=== PATIENT | male | born 1990 | race Caucasian/White ===

== ENCOUNTER 2017-02-16 09:10 | Inpatient (IN) | payer OTHER ==
[~2017-02-16] VITALS: Ht 205.7 cm; Wt 106.3 kg
[2017-02-16 09:22] VITALS: BP 133/76
[2017-02-16 09:31] VITALS: BP 153/64
[2017-02-16 10:05] LABS: BASO # 0.1 10*3/uL (0.0-0.1); BASO % 0.5 % (0.0-1.0); EOS # 0.3 10*3/uL (0.0-0.4); EOS % 2.7 % (1.0-4.0); HEMATOCRIT 45.3 % (42.0-52.0); LYMPH # 1.4 10*3/uL (1.3-4.4); LYMPH % 15.5 % (27.0-41.0); MEAN CELL VOLUME 92.1 fl (80.0-94.0); MEAN CORPUSCULAR HGB 30.5 pg (27.0-31.0); MEAN CORPUSCULAR HGB CONC 33.1 g/dl (33.0-37.0); MEAN PLATELET VOLUME 12.8 fl (9.6-12.3); MONO # 0.5 10*3/uL (0.1-1.0); MONO % 5.2 % (3.0-9.0); NEUT % 75.9 % (47.0-73.0); PLATELET COUNT AUTOMATED 180 10*3/uL (130-400); RED BLOOD COUNT 4.92 10*6/uL (4.50-5.90); RED CELL DISTRI WIDTH 12.4 % (0-14.5); WHITE BLOOD COUNT 9.3 10*3/uL (4.8-10.8)
[2017-02-16 10:07] LABS: BILIRUBIN NEGATIVE (NEGATIVE); BLOOD NEGATIVE (NEGATIVE); CLARITY CLEAR (CLEAR); COLOR YELLOW (YELLOW); GLUCOSE NEGATIVE (NEGATIVE); KETONE NEGATIVE (NEGATIVE); LEUKO ESTERASE NEGATIVE (NEGATIVE); NITRITE NEGATIVE (NEGATIVE); PROTEIN NEGATIVE (NEGATIVE); UROBILINOGEN 0.2 E.U./dl (0.2-1.0)
[2017-02-16 10:14] LABS: URINE AMPHETAMINES < 1000 (1000ng/ml); URINE BARBITURATES < 200 (200ng/ml); URINE COCAINE < 300 (300ng/ml)
[2017-02-16 10:16] LABS: EPITHELIAL CELLS 0-2; RBC 0-2 rbc/hpf (0-2); URINE REFLEX COMMENT NO (NO)
[2017-02-16 10:22] LABS: ALBUMIN 3.9 gm/dl (3.1-4.5); ALKALINE PHOSPHATASE 66 U/L (45-117); BILIRUBIN, TOTAL 0.7 mg/dl (0.2-1.0); BUN 17 mg/dl (7-24); CARBON DIOXIDE 31 mmol/L (21-32); CHLORIDE 101 mmol/L (98-107); EST GLOM FILT AFRICAN AMERICAN > 60 ml/min; GLUCOSE 100 mg/dL (65-99); POTASSIUM 4.7 mmol/L (3.5-5.1); SGOT/AST 25 IU/L (3-35); SGPT/ALT 48 U/L (12-78); SODIUM 138 mmol/L (136-145); TOTAL PROTEIN 8.1 gm/dL (6.4-8.2)
[2017-02-16 12:00] VITALS: BP 122/55
[2017-02-16 13:29] LABS: PROTHROMBIN TIME 10.4 SECONDS (9.0-12.4)
[2017-02-16 16:00] VITALS: BP 149/75
[2017-02-16 20:00] VITALS: BP 131/64
[2017-02-17] VITALS: BP 110/50
[2017-02-17 04:00] VITALS: BP 116/89
[2017-02-17 08:00] VITALS: BP 120/58
[2017-02-17 11:59] VITALS: BP 110/87
[2017-02-17 16:00] VITALS: BP 139/88
[2017-02-17] MEDS ORDERED: ZOFRAN 4 MG ED2 TAB PO (16:34)
[2017-02-17] MEDS ORDERED: ATARAX,VISTARIL50 MG PO (16:34)
[2017-02-17] MEDS ORDERED: CARBIDOPA/LEVOD1 TA1 PO (16:34)
== END 2017-02-17 18:00 | disposition home or self-care (01) | DRG 897 ==
LOC: ED 09:10 → 4E 10:28 → EDHOLD 10:28 → 4E 10:40
PROVIDERS: Internal Medicine Hospice and Palliative Medicine; Registered Nurse
DX: F11.23 Opioid dependence with withdrawal (principal); F41.9 Anxiety disorder, unspecified; M79.1 Myalgia; G25.81 Restless legs syndrome; F12.10 Cannabis abuse, uncomplicated; J30.2 Other seasonal allergic rhinitis; F17.210 Nicotine dependence, cigarettes, uncomplicated; Z88.8 Allergy status to other drugs, medicaments and biological substances

== ENCOUNTER 2020-04-30 11:14 | Inpatient (IN) | payer OTHER ==
[~2020-04-30] VITALS: Ht 205.7 cm; Wt 114.4 kg
[~2020-04-30 11:14] MED LIST: ATARAX,VISTARIL50 MG PO; CARBIDOPA/LEVOD1 TA1 PO; ZOFRAN 4 MG ED2 TAB PO
[2020-04-30 11:20] VITALS: BP 111/66
[2020-04-30 12:07] LABS: BASO # 0.1 10*3/uL (0.0-0.1); BASO % 0.8 % (0.0-1.0); EOS # 0.2 10*3/uL (0.0-0.4); EOS % 2.1 % (1.0-4.0); HEMATOCRIT 45.9 % (42.0-52.0); LYMPH # 1.5 10*3/uL (1.3-4.4); LYMPH % 21.4 % (27.0-41.0); MEAN CELL VOLUME 94.1 fl (80.0-94.0); MEAN CORPUSCULAR HGB 30.5 pg (27.0-31.0); MEAN CORPUSCULAR HGB CONC 32.5 g/dl (33.0-37.0); MEAN PLATELET VOLUME 12.1 fl (9.6-12.3); MONO # 0.5 10*3/uL (0.1-1.0); MONO % 6.3 % (3.0-9.0); NEUT # 4.9 10*3/uL (2.3-7.9); NEUT % 69.1 % (47.0-73.0); PLATELET COUNT AUTOMATED 197 10*3/uL (130-400); RED BLOOD COUNT 4.88 10*6/uL (4.50-5.90); RED CELL DISTRI WIDTH 12.9 % (0-14.5); WHITE BLOOD COUNT 7.1 10*3/uL (4.8-10.8)
[2020-04-30 12:12] LABS: ACT PARTIAL THROMBO TIME 29.6 SECONDS (20.0-32.1)
[2020-04-30 12:17] LABS: ALBUMIN 3.7 gm/dl (3.1-4.5); ALKALINE PHOSPHATASE 47 U/L (45-117); BUN 15 mg/dl (7-24); CHLORIDE 104 mmol/L (98-107); CREATININE 0.87 mg/dL (0.70-1.30); POTASSIUM 4.7 mmol/L (3.5-5.1); SGOT/AST 37 IU/L (3-35); SGPT/ALT 70 U/L (12-78); SODIUM 137 mmol/L (136-145); TOTAL PROTEIN 7.9 gm/dL (6.4-8.2)
[2020-04-30 12:19] LABS: ETHYL ALCOHOL < 3.0 mg/dl (<3)
[2020-04-30 12:21] LABS: BILIRUBIN NEGATIVE (NEGATIVE); CLARITY SL CLOUDY (CLEAR); COLOR YELLOW (YELLOW); GLUCOSE NEGATIVE (NEGATIVE); KETONE NEGATIVE (NEGATIVE)
[2020-04-30 12:22] LABS: BLOOD NEGATIVE (NEGATIVE); LEUKO ESTERASE NEGATIVE (NEGATIVE); NITRITE NEGATIVE (NEGATIVE); UROBILINOGEN 0.2 E.U./dl (0.2-1.0)
[2020-04-30 12:25] LABS: URINE AMPHETAMINES < 1000 (1000ng/ml); URINE BARBITURATES < 200 (200ng/ml); URINE BENZODIAZEPINES > 200 (200ng/ml); URINE CANNABINOIDS (THC) > 50 (50ng/ml); URINE COCAINE < 300 (300ng/ml); URINE METHADONE < 300 (300ng/ml); URINE OPIATES > 300 (300ng/ml)
[2020-04-30 12:28] LABS: URINE PHENCYCLIDINE < 25 (25ng/ml)
[2020-04-30 12:30] LABS: BACTERIA TRACE
[2020-04-30 12:44] VITALS: BP 129/69
[2020-04-30 13:45] VITALS: BP 120/91
[2020-04-30 16:00] VITALS: BP 125/69
[2020-04-30] MEDS ORDERED: PREGABALIN100 MG PO (16:40)
[2020-04-30 20:00] VITALS: BP 122/75
[2020-05-01] VITALS: BP 103/55
[2020-05-01 08:00] VITALS: BP 117/67
== END 2020-05-01 10:05 | disposition left against medical advice (07) | DRG 770 ==
LOC: ED 11:14 → EDHOLD 11:46 → 4E 12:15
PROVIDERS: Emergency Medicine; ADMIT Internal Medicine
DX: F11.23 Opioid dependence with withdrawal (principal); F13.20 Sedative, hypnotic or anxiolytic dependence, uncomplicated; F17.210 Nicotine dependence, cigarettes, uncomplicated; R00.0 Tachycardia, unspecified; D75.89 Other specified diseases of blood and blood-forming organs; E83.41 Hypermagnesemia; Z53.29 Procedure and treatment not carried out because of patient's decision for other reasons; F12.10 Cannabis abuse, uncomplicated; R74.0 Nonspecific elevation of levels of transaminase and lactic acid dehydrogenase [LDH]; Z71.6 Tobacco abuse counseling; Z88.6 Allergy status to analgesic agent; Z88.8 Allergy status to other drugs, medicaments and biological substances